=== PATIENT | male | born 2000 | race Hispanic/Latino ===

== ENCOUNTER 2024-02-10 15:55 | Emergency (ER) | payer MEDICAID ==
[~2024-02-10] VITALS: Ht 152.4 cm; Wt 80.2 kg
[2024-02-10] MEDS ORDERED: HYDROmorphone HCL 1 MG/ML SYR IV PRN (16:30)
[2024-02-10] MEDS ORDERED: propofoL 200 MG/20 ML VIAL IV ONE (17:30)
[2024-02-10] MEDS ORDERED: SODIUM CHLORIDE 0.9% 1,000 ML IV PRN (18:00)
[2024-02-10 19:40] VITALS: BP 119/56
== END 2024-02-10 19:55 | disposition home or self-care (01) ==
LOC: ED 15:55
DX: S43.014A Anterior dislocation of right humerus, initial encounter (principal); X58.XXXA Exposure to other specified factors, initial encounter; Y93.11 Activity, swimming
CPT/HCPCS: 23650; 73020; 73030; 99152; 99283; J1170; J2704